=== PATIENT | female | born 1970 | race Caucasian/White ===

== ENCOUNTER → 2020-04-02 | Outpatient (CLI) | payer OTHER ==
--- NOTE | 2020-04-02 14:07 | EKG REPORT ---
SEVERITY:- BORDERLINE ECG - SINUS RHYTHM PROBABLE LEFT ATRIAL ABNORMALITY BORDERLINE T ABNORMALITIES, DIFFUSE LEADS : Confirmed by: Martin Cox MD 02-Apr-2020 14:06:17
--- NOTE | 2020-04-02 14:17 | RADIOLOGY REPORT (SQ) ---
EXAM DESCRIPTION: CHEST 2 VIEWS IMAGES COMPLETED DATE/TIME: 04/02/2020 2:06 pm REASON FOR STUDY: Z01.811 ENCOUNTER FOR PREPROCEDURAL LABORATORY EXAMINATION COMPARISON: None. EXAM PARAMETERS: NUMBER OF VIEWS: two views TECHNIQUE: Digital Frontal and Lateral radiographic views of the chest acquired. RADIATION DOSE: NA LIMITATIONS: none FINDINGS: LUNGS AND PLEURA: No opacities, masses or pneumothorax. No pleural effusion. MEDIASTINUM AND HILAR STRUCTURES: No masses or contour abnormalities. HEART AND VASCULAR STRUCTURES: Heart normal size. No evidence for failure. BONES: No acute findings. HARDWARE: None in the chest. OTHER: No other significant finding. IMPRESSION: NO ACUTE RADIOGRAPHIC FINDING IN THE CHEST. TECHNICAL DOCUMENTATION: JOB ID: [id number] 2010 [employer]- All Rights Reserved Reading location - IP/workstation name: [email or web address]
[2020-04-02 14:38] LABS: ABSOLUTE EOSINOPHILS # (AUTO) 0.2 10^3/uL (0.0-0.6); ABSOLUTE LYMPHOCYTES (AUTO) 2.1 10^3/uL (0.5-4.7); ABSOLUTE MONOCYTES (AUTO) 0.5 10^3/uL (0.1-1.4); ABSOLUTE NEUT (AUTO) 4.9 10^3/uL (1.7-8.2); BASOPHILS % (AUTO) 0.4 % (0-2); HEMATOCRIT 36.6 % (36.0-47.0); HEMOGLOBIN 12.5 g/dL (12.0-15.5); LYMPHOCYTES % (AUTO) 27.3 % (13-45); MEAN CORPUSCULAR HEMOGLOBIN 29.2 pg (27.0-33.4); MEAN CORPUSCULAR HGB CONC 34.2 g/dL (32.0-36.0); MEAN CORPUSCULAR VOLUME 85 fl (80-97); MONOCYTES % (AUTO) 6.1 % (3-13); PLATELET COUNT 271 10^3/uL (150-450); RED BLOOD COUNT 4.29 10^6/uL (3.72-5.28); RED CELL DISTRIBUTION WIDTH 13.2 % (11.5-14.0); SEGMENTED NEUTROPHILS % (AUTO) 63.2 % (42-78); TOTAL CELLS COUNTED % (AUTO) 100 %; WHITE BLOOD COUNT 7.8 10^3/uL (4.0-10.5)
[2020-04-02 14:43] LABS: APPEARANCE,URINE CLEAR; BILIRUBIN,URINE NEGATIVE (NEGATIVE); COLOR,URINE YELLOW; GLUCOSE, URINE NEGATIVE (NEGATIVE); KETONES,URINE NEGATIVE (NEGATIVE); LEUKOCYTE ESTERASE,URINE NEGATIVE (NEGATIVE); NITRITE,URINE NEGATIVE (NEGATIVE); PROTEIN,URINE NEGATIVE (NEGATIVE); URINE SPECIFIC GRAVITY 1.009; UROBILINOGEN,URINE NEGATIVE mg/dL (<2.0)
[2020-04-02 14:45] LABS: INTERNATIONAL RATION (INR) 0.88; PARTIAL THROMBOPLASTIN TIME 29.8 SEC (23.5-35.8); PROTHROMBIN TIME 12.2 SEC (11.4-15.4)
[2020-04-02 15:02] LABS: ALBUMIN 4.7 g/dL (3.5-5.0); ANION GAP 11 (5-19); BLOOD UREA NITROGEN 11 mg/dL (7-20); CALCIUM 9.9 mg/dL (8.4-10.2); CARBON DIOXIDE 35 mmol/L (22-30); CHLORIDE 95 mmol/L (98-107); GLUCOSE 127 mg/dL (75-110); POTASSIUM 3.3 mmol/L (3.6-5.0)
[2020-04-02 15:05] LABS: C-REACTIVE PROTEIN < 5.0 mg/L (<10.0)
[2020-04-02 15:17] LABS: ERYTHROCYTE SEDIMENTATION RATE 27 mm/hr (0-30)
== END ==
LOC: OD 13:03
PROVIDERS: ATTEND Orthopaedic Surgery
DX: Z01.810 Encounter for preprocedural cardiovascular examination (principal); Z01.811 Encounter for preprocedural respiratory examination; Z01.812 Encounter for preprocedural laboratory examination; Z01.818 Encounter for other preprocedural examination
CPT/HCPCS: 36415; 71046; 80048; 81001; 82040; 82306; 83036; 85025; 85610; 85652; 85730; 86140; 87070; 93005; 93010

== ENCOUNTER 2020-04-16 07:58 | Observation (INO) | payer OTHER, MEDICAID ==
[~2020-04-16 07:58] MED LIST: DIPHENHYDRAMINE HCL 25 MG CAPSULE PO PRN; DOCUSATE SODIUM 100 MG CAPSULE PO PRN; FENTANYL CITRATE INJ/PF 100 MCG/2 ML AMPUL ONE; LACTATED RINGERS 1000 ML IV PRN; LIDOCAINE 0.5% INJ-PF (5 MG/ML) 50 ML SDV SUBCUT PRN; MELATONIN 10 MG PO PRN; MIDAZOLAM 2 MG/2 ML INJ ONE; MORPHINE SULFATE 10 MG/ML INJ IV PRN; NORMAL SALINE 1000 ML 1,000 ML IV ONE; ONDANSETRON 4 MG TAB.RAPDIS PO PRN; ONDANSETRON HCL INJ/PF 4 MG/2 ML SDV ONE; OXYCODONE HCL IR 5 MG TABLET PO PRN; PANTOPRAZOLE SODIUM 20 MG TABLET.DR PO ONE; PROPOFOL INJ 200 MG/20 ML VIAL IV ONE; TRAMADOL HCL 50 MG TABLET PO PRN; TRANEXAMIC ACID INJ/PF 1,000 MG/10 ML SDV ONE; VANCOMYCIN HCL 1,000 MG in DEXTROSE 5%-WATER 250 ML IV PRN; ZOLPIDEM TARTRATE 5 MG TABLET PO PRN
[2020-04-16] MEDS ORDERED: TRANEXAMIC ACID INJ/PF 1,000 MG/10 ML SDV IV ONE (08:30)
[2020-04-16] MEDS ORDERED: DEXAMETHASONE SOD PHOS INJ 10 MG/1 ML VIAL IV ONE (08:30)
[2020-04-16] MEDS: VANCOMYCIN HCL INJ 1000 MG VIAL ONE ×2 (09:05→10:24)
[2020-04-16] MEDS ORDERED: MELATONIN 5 MG TABLET PO PRN (09:06)
[2020-04-16] MEDS ORDERED: ACETAMINOPHEN 325 MG TABLET ONE (09:09)
[2020-04-16] MEDS ORDERED: CELECOXIB 200 MG CAPSULE ONE (09:09)
[2020-04-16] MEDS ORDERED: CEFAZOLIN 2 GM/D5W RTU 0 GM/0 ML RTUPB IV ONE (09:09)
[2020-04-16] MEDS ORDERED: OXYCODONE HCL SR 10 MG TABLET PO ONE (09:10)
[2020-04-16] MEDS ORDERED: GABAPENTIN 100 MG CAPSULE ONE (09:10)
[2020-04-16] MEDS ORDERED: SCOPOLAMINE HYDROBROMIDE 1.5 MG PATCH.TD72 ONE (09:10)
[2020-04-16] MEDS ORDERED: ONDANSETRON 4 MG TAB.RAPDIS ONE (09:10)
[2020-04-16] MEDS ORDERED: PANTOPRAZOLE SODIUM 20 MG TABLET.DR PO ONE (09:10)
[2020-04-16] MEDS ORDERED: BUPIVACAINE HCL 0.25 % INJ/PF (2.5 MG/1 ML) 30 ML VIAL ONE (09:43)
[2020-04-16] MEDS ORDERED: LIDOCAINE 1% INJ-PF (10 MG/ML) 30 ML SDV ONE (09:44)
[2020-04-16] MEDS ORDERED: KETOROLAC TROMETHAMINE INJ/PF 30 MG/1 ML SDV ONE (09:44)
[2020-04-16] MEDS ORDERED: CEFAZOLIN 2 GM/D5W RTU 2 GM/50 ML RTUPB IV ONE (09:50)
[2020-04-16] MEDS ORDERED: GABAPENTIN 100 MG CAPSULE PO SCH (10:00)
[2020-04-16] MEDS ORDERED: POLYETHYLENE GLYCOL 3350 POWDER 17 GM/1 PACKET PO SCH (10:00)
[2020-04-16] MEDS ORDERED: ASPIRIN 325 MG TABLET PO SCH (10:00)
[2020-04-16] MEDS ORDERED: CELECOXIB 200 MG CAPSULE PO SCH (10:00)
[2020-04-16] MEDS ORDERED: DIPHENHYDRAMINE HCL 50 MG/ML VIAL IV PRN (10:38)
[2020-04-16] MEDS ORDERED: PROMETHAZINE HCL INJ 25 MG/1 ML VIAL IV PRN ×2 (10:38)
[2020-04-16] MEDS ORDERED: FENTANYL CITRATE INJ/PF 100 MCG/2 ML AMPUL IV PRN ×3 (10:38)
[2020-04-16] MEDS ORDERED: MORPHINE SULFATE 10 MG/ML INJ IV PRN (10:38)
[2020-04-16] MEDS ORDERED: ONDANSETRON HCL INJ/PF 4 MG/2 ML SDV IV PRN (10:38)
[2020-04-16] MEDS ORDERED: MEPERIDINE HCL/PF INJ 25 MG/1 ML DISP.SYRIN IV PRN (10:38)
--- NOTE | 2020-04-16 11:39 | Operative Report ---
Operative Report DATE OF SURGERY: 04/16/20 PREOPERATIVE DIAGNOSIS: Severe primary right hip osteoarthritis POSTOPERATIVE DIAGNOSIS: Severe primary right hip osteoarthritis OPERATION: Right total hip arthroplasty SURGEON: MARIO ROSSI JR ANESTHESIA: Spinal COMPLICATIONS: None ESTIMATED BLOOD LOSS: 175 cc PROCEDURE: Implants: [employer] a fit size size 6 femoral stem with standard offset, a R3 size 52 cup, and a standard liner, a +4 neck length 36 mm Oxinium head OPERATIVE PROCEDURE: Patient was brought to the operating room on and underwent spinal anesthesia. 2 grams of Ancef and 1 g of vancomycin was given. After proper anesthesia was obtained, patient was positioned, padded, prepped, and draped in the usual sterile fashion on the operating room table. Appropriate time out was performed. An anterior approach to the hip was undertaken with meticulous hemostasis through the deep interval. A capsulectomy was performed followed by exposure of the femoral neck. The femoral neck was cut in line with the femoral broach and the femoral head was removed. The acetabulum was then exposed with three retractors in an atraumatic fashion. Soft tissue and osteophytes were removed. Medialization reaming was performed followed by reaming of the acetabulum. Wound was irrigated with dilute betadyne solution and the 52 mm acetabulum was impacted into correct position and stability checked by manipulating the impaction handle which rocked the pelvis. A standard liner was impacted into the shell with good stability. Potential impinging osteophytes were removed. Attention was then directed toward the femur, which was exposed with two retractors in an atraumatic fashion. A bone hook was placed to carefully pe rform releases along the superior capsule until the femur was safely delivered through the wound. A switch box installer was utilized followed by lateralization rasping and then broaching up to a stable, filled proximal femur. With a Standard offset neck and a 36 mm +4 neck length head, stability was good in flexion and extension with slightly long leg length on the right (the patient I have had a preoperative conversation in regards to the potential for her to have a left total hip arthroplasty and that we would equalize her leg lengths at a subsequent date). The final size 6 stem was impacted into a copiously irrigated femoral canal. The final size 36 mm +4 neck length head was impacted on a clean dry femoral taper. The hip was irrigated and reduced, further irrigation with antibiotic solution, betadine solution, then antibiotic solution. Bleeders were coagulated with bovie cautery. The fascia was then closed with number 2 barbed PDS; the subcutaneous tissue closed with 2-0 barbed monocryl and then a running 2-0 barbed monocryl subcuticular. A silver dressing was then applied. All needle sponge and instrument counts were correct. Patient was awakened from sedation anesthesia and taken to recovery room in stable condition.
[2020-04-16] MEDS ORDERED: TRANEXAMIC ACID INJ/PF 1,000 MG/10 ML SDV ONE (11:50)
[2020-04-16] MEDS ORDERED: ACETAMINOPHEN 325 MG TABLET PO SCH (12:00)
[2020-04-16] MEDS ORDERED: METHOCARBAMOL 750 MG TABLET PO SCH (12:00)
--- NOTE | 2020-04-16 12:59 | RADIOLOGY REPORT (SQ) ---
EXAM DESCRIPTION: HIP RIGHT AP/LATERAL IMAGES COMPLETED DATE/TIME: 04/16/2020 12:36 pm REASON FOR STUDY: post M16.11 UNILATERAL PRIMARY OSTEOARTHRITIS, RIGHT HIP COMPARISON: None. NUMBER OF VIEWS: Two views. TECHNIQUE: AP pelvis and additional frog legview of the right hip. LIMITATIONS: None. FINDINGS: Postoperative images show a right total knee replacement in good position. IMPRESSION: Right total knee replacement. Refer to operative note for further information. TECHNICAL DOCUMENTATION: JOB ID: [id number] 2010 [employer]- All Rights Reserved Reading location - IP/workstation name: [email or web address]
[2020-04-16] MEDS ORDERED: KETOROLAC TROMETHAMINE INJ/PF 30 MG/1 ML SDV IV SCH (14:00)
[2020-04-16] MEDS ORDERED: CEFAZOLIN 2 GM/D5W RTU 2 GM/50 ML RTUPB IV SCH (14:00)
--- NOTE | 2020-04-16 14:52 | Discharge Summary ---
Discharge Summary (SDC) - Discharge Final Diagnosis: Right total hip arthroplasty Date of Surgery: 04/16/20 Discharge Date: 04/16/20 Forms: Discharge POC-Adult Treatment or Instructions: Full details of postoperative instructions have been provided to the patient in the clinic. Additionally they should maintain their bandage in place for 10 days, and then changed to a dry dressing. They can take showers with this occlusive dressing but any further dressing should also be occlusive. No showers with the wound unprotected until cleared by me in the clinic. If the bandage falls off early or become saturated they can change as needed to another occlusive dressing. Follow-up with Dr. Zay Torres, orthopedic surgeon at [facility] for surgery, in 10 days. Call for an appointment. . [address], [place] [address] Referrals: [facility] [Primary [facility] Provider] - Discharge Diet: As Tolerated Respiratory Treatments at Home: Deep Breathing/Coughing Discharge Activity: Activity As Tolerated, No Driving, Keep Legs Elevated, No Lifting Over 10 Pounds, Slowly Increase Activity, No tub bath, Walk Frequently Home Care Assistance: None Needed Adaptive Devices on Discharge: Rolling Walker, Bedside Commode Report the Following to Your Physician Immediately: Increase in Pain, Unusual Bleeding, Redness, Swelling, Warmth, Increased Soreness, Drainage-Yellow
--- NOTE | 2020-04-16 15:21 | RADIOLOGY REPORT (SQ) ---
EXAM DESCRIPTION: NO CHG FLUORO; HIP IN OPERATING RM IMAGES COMPLETED DATE/TIME: 04/16/2020 3:06 pm REASON FOR STUDY: RIGHT HIP TOTAL ARTHROPLASTY ASSISTED WITH FLUORO IN OR COMPARISON: None. FLUOROSCOPY TIME: No recordable fluoro time. 2 Images saved to PACS LIMITATIONS: None. PROCEDURE: Right total hip arthroplasty. FINDINGS: Images from fluoro document the progress of the procedure. IMPRESSION: Right hip arthroplasty. Refer to operative note for further information. COMMENT: PQRS 6045F: Fluoroscopy time of the procedure is documented in the report. TECHNICAL DOCUMENTATION: JOB ID: [id number] 2010 [employer]- All Rights Reserved Reading location - IP/workstation name: [email or web address]
--- NOTE | 2020-04-16 15:21 | RADIOLOGY REPORT (SQ) ---
EXAM DESCRIPTION: NO CHG FLUORO; HIP IN OPERATING RM IMAGES COMPLETED DATE/TIME: 04/16/2020 3:06 pm REASON FOR STUDY: RIGHT HIP TOTAL ARTHROPLASTY ASSISTED WITH FLUORO IN OR COMPARISON: None. FLUOROSCOPY TIME: No recordable fluoro time. 2 Images saved to PACS LIMITATIONS: None. PROCEDURE: Right total hip arthroplasty. FINDINGS: Images from fluoro document the progress of the procedure. IMPRESSION: Right hip arthroplasty. Refer to operative note for further information. COMMENT: PQRS 6045F: Fluoroscopy time of the procedure is documented in the report. TECHNICAL DOCUMENTATION: JOB ID: [id number] 2010 [employer]- All Rights Reserved Reading location - IP/workstation name: [email or web address]
[2020-04-16 16:54] VITALS: BP 93/50
[2020-04-16] MEDS ORDERED: GLYCOPYRROLATE 1 MG/5 ML VIAL ONE (17:53)
[2020-04-16] MEDS ORDERED: EPINEPHRINE INJ 1 MG/10 ML DISP.SYRIN ONE (17:53)
[2020-04-16] MEDS ORDERED: CEFAZOLIN SODIUM 2 GM in DEXTROSE 5%-WATER 100 ML IV SCH (18:00)
[2020-04-16] MEDS ORDERED: ATORVASTATIN CALCIUM 40 MG TABLET PO SCH (22:00)
== END 2020-04-16 15:54 | disposition home or self-care (01) ==
LOC: OROUT 07:58 → INOR 07:59 → EDSTATUS 10:00 → OROUT 13:21 → 4N 13:21 → OROUT 15:54
PROVIDERS: ADMIT Orthopaedic Surgery; ATTEND Orthopaedic Surgery
DX: M16.11 Unilateral primary osteoarthritis, right hip (principal); Z20.828 Contact with and (suspected) exposure to other viral communicable diseases; E78.5 Hyperlipidemia, unspecified; I10 Essential (primary) hypertension; G47.33 Obstructive sleep apnea (adult) (pediatric); M48.061 Spinal stenosis, lumbar region without neurogenic claudication; Z98.1 Arthrodesis status; Z79.1 Long term (current) use of non-steroidal anti-inflammatories (NSAID); Z79.891 Long term (current) use of opiate analgesic; Z79.899 Other long term (current) drug therapy; Z79.82 Long term (current) use of aspirin
CPT/HCPCS: 27130; 86900; 86901; 36415; 86850; 84132; 87635; 73502; 73501; 97116; 97162; 97165; 01214; G0378; G0379; C1776 ×4; J2250; J0171; S0119; J3490 ×5; J1885; J2405; J7060; J2704; J3370; J0690; C9803; J3010